=== PATIENT | female | born 1930 | race Caucasian/White ===

== ENCOUNTER 2017-04-21 06:05 | Emergency (ER) | payer MEDICARE, OTHER ==
[~2017-04-21] VITALS: Ht 170.2 cm; Wt 63.6 kg
[2017-04-21 07:19] LABS: CLARITY,URINE TURBID (Clear); COLOR,URINE YELLOW (Yellow); GLUCOSE, URINE NEGATIVE (Neg); KETONES,URINE TRACE mg/dl (Neg); LEUKOCYTE ESTERASE ,URINE LARGE (Neg); NITRITES, URINE NEGATIVE (Neg); OCCULT BLOOD,URINE LARGE (Neg); PH,URINE 8.5 (4.8-8.0); PROTEIN,URINE 100 mg/dl (Neg); UROBILINOGEN,URINE 0.2 E.U/dL (0.2-1.0)
[2017-04-21 07:20] LABS: UA COLLECTION TYPE VOIDED
[2017-04-21 07:25] LABS: BACTERIA,URINE 2+ /HPF (Neg); MUCUS STRANDS NONE SEEN /LPF (Neg); SQUAMOUS EPITHELIAL CELL,UR FEW /LPF (FEW); WBC,URINE 50-100 /HPF (0-4)
[2017-04-21] MEDS ORDERED: bisacodyl 10mg suppository rectal RC ONE (07:30)
[2017-04-21] MEDS ORDERED: acetaminophen 325mg tablet PO ONE (07:35)
[2017-04-21] MEDS ORDERED: NITR100C6 PO (08:07)
[2017-04-21] MEDS ORDERED: levoFLOXACIN 500mg tablet PO ONE (08:10)
[2017-04-21] MEDS ORDERED: levoFLOXACIN 750MG TABLET PO ONE (08:10)
[2017-04-21 08:20] VITALS: BP 165/86
== END 2017-04-21 08:23 | disposition home or self-care (01) ==
LOC: ER 06:05
DX: S70.01XA Contusion of right hip, initial encounter (principal); L57.0 Actinic keratosis; I10 Essential (primary) hypertension; N39.0 Urinary tract infection, site not specified; H91.93 Unspecified hearing loss, bilateral; W01.0XXA Fall on same level from slipping, tripping and stumbling without subsequent striking against object, initial encounter; Y93.89 Activity, other specified; Y92.89 Other specified places as the place of occurrence of the external cause; Y99.8 Other external cause status
CPT/HCPCS: 72170; 73060; 81001; 87088; 99285